=== PATIENT | male | born 1970 | race Caucasian/White ===

== ENCOUNTER 2021-07-03 08:19 | Emergency (ER) | payer SELFPAY ==
[~2021-07-03] VITALS: Ht 185 cm; Wt 77.0 kg
[~2021-07-03 08:19] MED LIST: ACYC800T PO; LEVO500T69 PO; METR500T PO
--- NOTE | 2021-07-03 08:43 | ED Chest Pain ---
General Chief Complaint: Chest Pain Stated Complaint: CP Nursing Triage Note: ARRIVED VIA AMB TO ROOM 05. COMPLAINS OF CHEST PAIN X1 WEEK ET THINKS IT IS MELANOMA. Source: patient Exam Limitations: no limitations History of Present Illness Date Seen by Provider: Jul 03, 2021 Time Seen by Provider: 08:21 Initial Comments 51-year-old male with past medical history of osteoarthritis, thyroid disease, and melanoma coming in due to chest discomfort. Is been happening off and on for the past week. Says the pain is mild, intermittent, sharp, central in his chest, does not really radiate anywhere. It is similar in location to where he had a lesion removed it was melanoma on his chest about 2 months ago. He was told he needs to follow-up to have more removed, and he was unhappy with the billing process so has not followed up. He says he believes this is melanoma causing the discomfort. He denies any shortness of breath, palpitations, leg sw elling, fever, cough, recent surgery under anesthesia, prior history of DVT or PE. He denies any cardiac history as well. He says he has not actually been hurting since Thursday which was 3 days ago, but he has been getting nervous since he was told to follow-up and he has not as of yet, so wanted to get checked out. Allergies and Home Medications Allergies Coded Allergies: No Known Drug Allergies (Unverified , 04/29/10) Patient Home Medication List Home Medication List Reviewed: Yes Review of Systems Review of Systems Constitutional: No chills, No fever EENTM: No Blurred Vision Respiratory: Denies Cough, Denies Shortness of Air Cardiovascular: Chest Pain Gastrointestinal: Denies Abdominal Pain, Denies Diarrhea, Denies Nausea, Denies Vomiting Genitourinary: No Symptoms Reported Musculoskeletal: no symptoms reported Skin: hx of skin cancer Psychiatric/Neurological: No Symptoms Reported Endocrine: No Symptoms Reported Hematologic/Lymphatic: No Symptoms Reported All Other Systems Reviewed Negative Unless Noted: Yes Past Ztymocc-Omkfbu-Tzniqt Hx Patient Social History Tobacco Use?: Yes Smoking Status: Current Everyday Smoker Substance use?: Yes Substance type: Marijuana Alcohol Use?: No Past Medical History Surgeries: Yes (melanoma removal chest and back) Orthopedic Physical Exam Vital Signs Vital Signs - First Documented 07/03/21 08:20 Temp 35.1 Pulse 98 Resp 16 B/P (MAP) 148/112 (124) Pulse Ox 97 O2 Delivery Room Air Capillary Refill : Less Than 3 Seconds Height, Weight, BMI Height: 6'1.00" Weight: 165lbs. 0.0oz. [id number]; 22.00 BMI Method: General Appearance: No Apparent Distress, WD/WN HEENT: PERRL/EOMI, Normal ENT Inspection, Pharynx Normal Neck: Full Range of Motion, Normal Inspection, Non Tender, Supple Respiratory: Chest Non Tender, Lungs Clear, Normal Breath Sounds, No Accessory Muscle Use, No Respiratory Distress Cardiovascular: Regular Rate, Rhythm, No Edema, Normal Peripheral Pulses Gastrointestinal: Normal Bowel Sounds, Non Tender, Soft; No Distended, No Guarding Extremity: Normal Capillary Refill, Normal Inspection, Normal Range of Motion, Non Tender, No Calf Tenderness, No Pedal Edema Neurologic/Psychiatric: Alert, No Motor/Sensory Deficits, Normal Mood/Affect Skin: Normal Color, Warm/Dry, Other (Well-healed scar to his chest as well as back without any signs of infection, mild tenderness to palpation when pushing on his chest that recreates his discomfort) Lymphatic: No Adenopathy Progress/Results/Core Measures Results/Orders Lab Results Laboratory Tests Test 07/03/21 08:40 Range/Units White Blood Count 8.0 4.3-11.0 10^3/uL Red Blood Count 4.67 4.30-5.52 10^6/uL Hemoglobin 15.5 13.3-17.7 g/dL Hematocrit 45 40-54 % Mean Corpuscular Volume 97 80-99 fL Mean Corpuscular Hemoglobin 33 25-34 pg Mean Corpuscular Hemoglobin Concent 34 32-36 g/dL Red Cell Distribution Width 12.2 10.0-14.5 % Platelet Count 356 130-400 10^3/uL Mean Platelet Volume 9.2 9.0-12.2 fL Immature Granulocyte % (Auto) 0 % Neutrophils (%) (Auto) 52 42-75 % Lymphocytes (%) (Auto) 40 12-44 % Monocytes (%) (Auto) 7 0-12 % Eosinophils (%) (Auto) 1 0-10 % Basophils (%) (Auto) 0 0-10 % Neutrophils # (Auto) 4.1 1.8-7.8 10^3/uL Lymphocytes # (Auto) 3.2 1.0-4.0 10^3/uL Monocytes # (Auto) 0.6 0.0-1.0 10^3/uL Eosinophils # (Auto) 0.1 0.0-0.3 10^3/uL Basophils # (Auto) 0.0 0.0-0.1 10^3/uL Immature Granulocyte # (Auto) 0.0 0.0-0.1 10^3/uL Prothrombin Time 12.7 12.2-14.7 SEC INR Comment 0.9 0.8-1.4 Activated Partial Thromboplast Time 27 24-35 SEC Sodium Level 137 135-145 MMOL/L Potassium Level 4.0 3.6-5.0 MMOL/L Chloride Level 104 98-107 MMOL/L Carbon Dioxide Level 21 21-32 MMOL/L Anion Gap 12 5-14 MMOL/L Blood Urea Nitrogen 8 7-18 MG/DL Creatinine 0.95 0.60-1.30 MG/DL Estimat Glomerular Filtration Rate 96 BUN/Creatinine Ratio 8 Glucose Level 102 70-105 MG/DL Calcium Level 9.1 8.5-10.1 MG/DL Corrected Calcium 8.7 8.5-10.1 MG/DL Magnesium Level 2.0 1.6-2.4 MG/DL Total Bilirubin 0.6 0.1-1.0 MG/DL Aspartate Amino Transf (AST/SGOT) 16 5-34 U/L Alanine Aminotransferase (ALT/SGPT) 26 0-55 U/L Alkaline Phosphatase 82 40-136 U/L Troponin I < 0.028 <0.028 NG/ML Total Protein 7.5 6.4-8.2 GM/DL Albumin 4.5 3.2-4.5 GM/DL My Orders Orders - JUANI MIRANDA MD Cbc With Automated Diff (07/03/21 08:37) Magnesium (07/03/21 08:37) Chest 1 View, Ap/Pa Only (07/03/21 08:37) Ekg Tracing (07/03/21 08:37) Comprehensive Metabolic Panel (07/03/21 08:37) Protime With Inr (07/03/21 08:37) Partial Thromboplastin Time (07/03/21 08:37) O2 (07/03/21 08:37) Monitor-Rhythm Ecg Trace Only (07/03/21 08:37) Ed Iv/Invasive Line Start (07/03/21 08:37) Troponin I Mc (07/03/21 08:37) Antacid Suspension (Mylanta Suspension (07/03/21 08:45) Medications Given in ED Current Medications Medications Dose Ordered Sig/Jaquan Route Start Time Stop Time Status Last Admin Dose Admin Al Hydrox/Mg Hydrox/Simethicone 30 ml ONCE ONCE PO 07/03/21 08:45 07/03/21 08:46 DC 07/03/21 08:48 30 ML Vital Signs/I&O 07/03/21 08:20 Temp 35.1 Pulse 98 Resp 16 B/P (MAP) 148/112 (124) Pulse Ox 97 O2 Delivery Room Air Blood Pressure Mean: 124 Progress Progress Note : Progress Note 51-year-old male with above history coming in due to intermittent chest discomfort. Truthfully he says it has not hurt in over 3 days, but since he has not followed up for his melanoma check to potentially remove more he has been anxious. ABCs were intact and vitals were stable on presentation. Physical exam with no acute abnormalities in the surgical wound from the skin cancer removal is scarred and healed. He has never had any cardiac history in the past. EKG with some T wave inversions in 3 and aVF with no prior to compare to but no ST changes. Basic labs and cardiac biomarkers ordered including negative troponin. He is not tachycardic, not short of breath, no signs and symptoms of a DVT, and overall my suspicion for PE is low. Chest x-ray is clear without any focal abnormalities. Given Maalox because when I reviewed his chart he does have a history of gastritis. He continues to feel well and have no symptoms. I have urged him to follow back up with the client account specialist which he has seen, I t old him that melanoma typically spreads quickly and he needs to follow-up as soon as possible. Initial ECG Impression Date: Jul 03, 2021 Initial ECG Impression Time: 08:24 Initial ECG Rate: 95 Initial ECG Rhythm: Normal Sinus Comment Narrow QRS, normal axis, T wave inversions in leads III and aVF which is nonspecific and no prior EKG to compare to Diagnostic Imaging Diagonstic Imaging: Xray Plain Films/CT/US/NM/MRI: chest Comments [facility] [place], [place] NAME: ELAINA [facility] REC#: [id number] PT STATUS: REG ER : 1970 PHYSICIAN: JUANI MIRANDA MD ADMIT DATE: 07/03/21/ER Draft Date of Exam:07/03/21 CHEST 1 VIEW, AP/PA ONLY INDICATION: Chest pain. Frontal chest obtained at 09:25 a.m. FINDINGS: Heart and mediastinal silhouette are normal in appearance. The lungs are clear. There is no pneumothorax or pleural fluid. IMPRESSION: Negative chest. Dictated on workstation # [id number] Dict: 07/03/2145 Trans: 07/03/21 0946 [id number] Interpreted by: PRIYA COX MD Electronically signed by: Departure Impression Primary Impression: Chest wall pain Additional Impression: Melanoma Qualified Codes: C43.9 - Malignant melanoma of skin, unspecified Disposition: HOME, SELF-CARE Condition: Stable Departure-Patient Inst. Decision time for Depature: 10:01 Referrals: [facility] [place] (PCP) Primary Care Physician IMAN DIOP APRN (Family) Primary Care Physician Patient Instructions: Melanoma Skin Cancer, Chest Pain (DC) Add. Discharge Instructions: I urge you to follow-up with the client account specialist that removed your melanoma as soon as possible as this can spread very quickly and if more needs to be removed, needs to happen soon. If you begin having severe chest pain that would not go away, begin feeling short of breath, or have any other concerns then please come back to the ER. Scripts No Active Prescriptions or Reported Meds Work/School Note: Work Release Form Date Seen in the Emergency Department: Jul 03, 2021 Return to Work: Jul 04, 2021 Restrictions: No Restrictions JUANI MIRANDA MD Jul 03, 2021 08:43
[2021-07-03] MEDS ORDERED: ANTACID SUSP 30 ML UDC (MYLANTA) PO ONE (08:45)
[2021-07-03 08:49] LABS: BASOPHILS % (AUTO) 0 % (0-10); EOSINOPHILS # (AUTO) 0.1 10^3/uL (0.0-0.3); EOSINOPHILS % (AUTO) 1 % (0-10); HEMATOCRIT 45 % (40-54); HEMOGLOBIN 15.5 g/dL (13.3-17.7); LYMPHOCYTES # (AUTO) 3.2 10^3/uL (1.0-4.0); LYMPHOCYTES % (AUTO) 40 % (12-44); MEAN CORPUSCULAR HEMOGLOBIN 33 pg (25-34); MEAN CORPUSCULAR HGB CONC 34 g/dL (32-36); MEAN CORPUSCULAR VOLUME 97 fL (80-99); MEAN PLATELET VOLUME 9.2 fL (9.0-12.2); MONOCYTES # (AUTO) 0.6 10^3/uL (0.0-1.0); MONOCYTES % (AUTO) 7 % (0-12); NEUTROPHILS # (AUTO) 4.1 10^3/uL (1.8-7.8); NEUTROPHILS % (AUTO) 52 % (42-75); PLATELET COUNT 356 10^3/uL (130-400)
[2021-07-03 09:01] LABS: ALBUMIN 4.5 GM/DL (3.2-4.5); INR 0.9 (0.8-1.4); PROTHROMBIN TIME PATIENT 12.7 SEC (12.2-14.7)
[2021-07-03 09:02] LABS: CALCIUM 9.1 MG/DL (8.5-10.1)
[2021-07-03 09:04] LABS: TOTAL PROTEIN 7.5 GM/DL (6.4-8.2)
[2021-07-03 09:05] LABS: BILIRUBIN,TOTAL 0.6 MG/DL (0.1-1.0)
[2021-07-03 09:07] LABS: CREATININE SERUM 0.95 MG/DL (0.60-1.30)
--- NOTE | 2021-07-03 09:47 | Diagnostic Imaging Report ---
INDICATION: Chest pain. Frontal chest obtained at 09:25 a.m. FINDINGS: Heart and mediastinal silhouette are normal in appearance. The lungs are clear. There is no pneumothorax or pleural fluid. IMPRESSION: Negative chest. Dictated by: Dictated on workstation # [id number]
[2021-07-03 10:25] VITALS: BP 122/87
== END 2021-07-03 10:25 | disposition home or self-care (01) ==
LOC: EDUNIT# 08:19 → ER 08:22
DX: C43.9 Malignant melanoma of skin, unspecified (principal); R07.89 Other chest pain; F17.290 Nicotine dependence, other tobacco product, uncomplicated
CPT/HCPCS: 36415; 71045; 80053; 83735; 84484; 85025; 85610; 85730; 93005

== ENCOUNTER 2022-03-19 14:24 | Emergency (ER) | payer SELFPAY ==
[~2022-03-19] VITALS: Ht 185.5 cm; Wt 68.2 kg
[2022-03-19] MEDS ORDERED: ACYCLOVIR 400 MG TABLET (ZOVIRAX) PO STA (15:29)
[2022-03-19] MEDS ORDERED: predniSONE 20 MG TAB PO ONE (15:30)
--- NOTE | 2022-03-19 15:43 | ED Neurological Problem ---
General Chief Complaint: Neuro-Stroke Like Symptoms Stated Complaint: STROKE-LIKE SYMPTOMS Nursing Triage Note: PT TO ED WITH C/O L SIDE FACIAL DROOP, UNABLE TO CLOSE L EYE STATES IT STARTED AROUND 1000 Source: patient Exam Limitations: no limitations History of Present Illness Date Seen by Provider: Mar 19, 2022 Time Seen by Provider: 14:30 Initial Comments This 52-year-old gentleman presents to the emergency room via EMS with symptoms of left-sided facial droop that started around 1000 this morning. He was sent here from an urgent care facility due to concern for possible stroke. Patient has weakness of the left side of the face including inability to completely close the left eye and subtle weakness of the left forehead. 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 He has no other focal deficits. He denies any recent signs or symptoms of infectious illness such as fever, vomiting, cough, shortness of breath, etc. He has no facial pain or headache. Allergies and Home Medications Allergies Coded Allergies: No Known Drug Allergies (Unverified , 04/29/10) Patient Home Medication List Home Medication List Reviewed: Yes Acyclovir (Acyclovir) 400 Mg Tablet, 400 MG PO 5XD Prescribed by: ANNA WORKMAN on 03/19/22 1545 Prednisone (Prednisone) 20 Mg Tab, 60 MG PO DAILY Prescribed by: ANNA WORKMAN on 03/19/22 1545 Review of Systems Review of Systems Constitutional: no symptoms reported Eyes: See HPI Ears, Nose, Mouth, Throat: no symptoms reported Respiratory: no symptoms reported Cardiovascular: no symptoms reported Gastrointestinal: no symptoms reported Genitourinary: no symptoms reported Musculoskeletal: no symptoms reported Skin: no symptoms reported Psychiatric/Neurological: See HPI Endocrine: No Symptoms Reported Hematologic/Lymphatic: No Symptoms Reported Past Rvkasdf-Ehopda-Aevzyz Hx Patient Social History Tobacco Use?: Yes Tobacco type used: Cigarettes Smoking Status: Current Everyday Smoker Substance use?: No Alcohol Use?: Yes Alcohol Frequency: Couple times a week Pt feels they are or have been: No Past Medical History Surgery/Hospitalization HX: HYPOTHYROID, HERNIATED DISC, ARTHRITIS, METAL ANTHONY IN L LEG Surgeries: Yes (melanoma removal chest and back) Orthopedic Respiratory: No Cardiac: No Neurological: Yes (Greenfield's palsy) Reproductive Disorders: No Genitourinary: No Gastrointestinal: No Musculoskeletal: Yes Degenerate Disk Disease (Cervical spine), Arthritis Endocrine: Yes Hypothyroidsim HEENT: No Cancer: Yes Melanoma Did You Recieve Any Treatments: Yes What Type of Treatment Did You: Surgical Intervention Psychosocial: No Integumentary: No Physical Exam Vital Signs Vital Signs - First Documented 03/19/22 14:27 Temp 36.4 Pulse 92 Resp 12 B/P (MAP) 143/90 (107) Pulse Ox 98 Capillary Refill : Height, Weight, BMI Height: 6'1.00" Weight: 165lbs. 0.0oz. 74.367905xs; 19.00 BMI Method: General Appearance: WD/WN, no apparent distress HEENT: PERRL/EOMI, normal ENT inspection, TMs normal, pharynx normal Neck: normal inspection Respiratory: lungs clear, normal breath sounds, no respiratory distress Cardiovascular: regular rate, rhythm, no edema, no murmur Gastrointestinal: non tender, soft Extremities: normal inspection, no pedal edema Neurologic/Psychiatric: alert, normal mood/affect, oriented x 3, abnormal shipping and receiving specialist II-XII (Facial droop on the left with weakness of the eyelids and loss of wrinkle definition on the left forehead) Crainal Nerves: normal hearing, normal speech, PERRL Coordination/Gait: normal finger to nose Motor/Sensory: no sensory deficit Skin: normal color, warm/dry Stroke NIH Stroke Scale Assessment Level of Consciousness: 0=Alert (0), Level of Consciousness-Questions: 0=Answers both month/age (0), LOC Commands: 0=Performs both tasks (0), Visual Manriquez: 0=No visual loss (0), Facial Movement (Facial Paresis): 2=Partial paralysis (2), Motor Function-Arms Right: 0=No drift (0), Motor Function-Arms Left: 0=No drift (0), Motor Function-Legs Right: 0=No drift (0), Motor Function-Legs Left: 0=No drift (0), Limb Ataxia: 0=Absent (0), Sensory: 0=Normal:no loss (0), Best Language: 0=No aphasia (0), Dysarthria: 1=Mild to moderate loss (1), Extinction & Inattention: 0=No abnormality (0), Total: Progress/Results/Core Measures Results/Orders My Orders Orders - ANNA FERGUSON MD Prednisone Tablet (Deltasone Tablet) (03/19/22 15:30) Acyclovir Capsule/Tablet (Zovirax Caps (03/19/22 15:29) Medications Given in ED Current Medications Medications Dose Ordered Sig/Jaquan Route Start Time Stop Time Status Last Admin Dose Admin Prednisone 60 mg ONCE ONCE PO 03/19/22 15:30 03/19/22 15:31 DC 03/19/22 15:46 60 MG Vital Signs/I&O 03/19/22 03/19/22 14:27 15:55 Temp 36.4 36.4 Pulse 92 92 Resp 12 12 B/P (MAP) 143/90 (107) 143/90 Pulse Ox 98 98 Blood Pressure Mean: 107 Progress Progress Note : Progress Note Symptoms and history were consistent with Greenfield's palsy. There was obvious involvement of the eye and left forehead. Initial doses of prednisone and acyclovir were administered in the ER. See discharge instructions for further discussion. Departure Impression Primary Impression: Greenfield's palsy Disposition: 01 HOME, SELF-CARE Condition: Stable Departure-Patient Inst. Decision time for Depature: 15:41 Referrals: [facility] (PCP) Primary Care Physician IMAN DIOP APRN (Family) Primary Care Physician Patient Instructions: Greenfield's Palsy Add. Discharge Instructions: Your symptoms are due to Greenfield's palsy. Use of antiviral medication (acyclovir) and steroids (prednisone) should help you recover faster. Start your prednisone prescription tomorrow morning. Take prednisone with food or milk to avoid stomach upset. Take early in the day to avoid sleep disturbance. If it causes stomach upset, you may additionally take an antacid medication such as Pepcid (famotidine) or omeprazole. It is very important that you protect your eye while you are blink reflex and speed is affected. Wear protective eyewear anytime you are in environments that are albaro, sathya, windy, etc. If you are in a high risk area such as an industrial environment with dust, where full goggles that contact the skin until your blink speed and strength is restored. You may tape your eyelid down at night while you sleep to protect your eye. This is important to prevent injury from sheets, hands, etc. during the night. Also keep your eye moist with artificial tears. Use artificial tears liberally to help protect your eye. Take great care when eating or drinking while you have Greenfield's palsy because the sensation and movement of your lips and tongue may be affected. Avoid eating or drinking hot items as you may burn yourself without realizing. Chew and swallow carefully to avoid injuring your mouth parts when biting down and to prevent choking. Please follow-up with your primary care provider soon as possible. Call this afternoon or first thing in the morning for an appointment. All discharge instructions reviewed with patient and/or family. Voiced understanding. Scripts Acyclovir (Acyclovir) 400 Mg Tablet 400 MG PO 5XD, #35 TAB Start evening of March 19 Prov: ANNA FERGUSON MD 03/19/22 Prednisone (Prednisone) 20 Mg Tab 60 MG PO DAILY, #18 TAB 0 Refills Start morning of March 20 Prov: ANNA FERGUSON MD 03/19/22 Copy Copies To 1: [facility]/ANNA MCGINNIS MD Mar 19, 2022 15:43
[2022-03-19] MEDS ORDERED: PRD20T PO (15:45)
[2022-03-19] MEDS ORDERED: ACYC400T21 PO (15:45)
[2022-03-19 15:55] VITALS: BP 143/90
== END 2022-03-19 15:56 | disposition home or self-care (01) ==
LOC: EDUNIT# 14:24 → ER 14:27
DX: G51.0 Bell's palsy (principal); F17.210 Nicotine dependence, cigarettes, uncomplicated
CPT/HCPCS: 99283